=== PATIENT | female | born 1985 | race Caucasian/White ===

== ENCOUNTER → 2017-02-21 | Outpatient (CLI) | payer OTHER | LOC: FIMAGING 10:19 | PROVIDERS: ATTEND Obstetrics & Gynecology | DX: O09.812 Supervision of pregnancy resulting from assisted reproductive technology, second trimester (principal); Z3A.19 19 weeks gestation of pregnancy ==

== ENCOUNTER 2017-07-09 05:37 | Inpatient (IN) | payer OTHER ==
--- NOTE | 2017-07-03 14:15 | GHP ---
[f rep st] HISTORY AND PHYSICAL DATE OF ADMISSION: 07/09/2017 ADMITTING DIAGNOSES: 1. Intrauterine at 39 2/7 weeks. 2. Previous section, declines trial of labor. HISTORY OF PRESENT ILLNESS: Patient is a 32-year-old 2, para 1-0-0-1 at 39-2/7 weeks' with estimated due date 07/14/2017 by IVF and FET on 2016. The patient presents to Labor and Delivery with a history of a previous C -section, declines a trial of labor. Desires repeat at this time. Patient states good movement. Denies any leakage of fluid, vaginal bleeding, or contractions. The patient has good care at [facility], and presented in her first trimester at 9 weeks. is complicated by previous secondary to arrest of dilation. 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 The patient has a history of migraines but no issues during the . She had a subchorionic hemorrhage noted on first trimester u/s, but it resolved on 20 week ultrasound. Patient received both Tdap and flu vaccine. She did have a level 2 ultrasound with MFM showing normal brain anatomy, and all anatomy normal. She also had a echo that was negative secondary to IVF. This patient developed slight anemia late in the third trimester. GBS is positive. PAST OB HISTORY: In February 2014, she delivered a viable male infant at 40 weeks 3 days, weighing 8 pounds 15 ounces, by secondary to arrest of descent. 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 Positive GBS. GYNECOLOGIC HISTORY: Age of menarche 11, cycles are every 28 days for 4 days. The patient did IVF, the transfer was done October 26, 2016. Patient does have a history of abnormal Pap smear in 2012, ASCUS, negative HPV. Pap smear was normal during this . The patient has a history of NuvaRing use, OCPs, and IUD. Her IUD was removed in November 2015. Denies any exposure to STD's. CURRENT MEDICATIONS: Include vitamins, baby aspirin. ALLERGIES: No known drug allergies. PAST MEDICAL HISTORY: Migraine headaches. PAST SURGICAL HISTORY: 2013, hysteroscopy January 2016, wisdom teeth extraction 2001. FAMILY HISTORY: Father with chronic hypertension. Mother, diverticulitis and breast cancer, age 44. Maternal cousin, ovarian cancer, age 30. Maternal grandmother skin cancer, brain cancer. SOCIAL HISTORY: The patient is . Lives with her , Giacomo, who also has craniosynostosis. She is a [id number] mom. Denies any alcohol, tobacco, or illicit drug use. LABS: A positive. Antibody negative. RPR nonreactive. Rubella immune. Hepatitis B surface antigen negative. HIV negative. Trio screen all negative, 2012. TSH 1.4. Urine culture was positive and the test of cure negative. Pap smear negative 12/11/2016. Gonorrhea and chlamydia cultures were negative 2012. Declined in this . H and H 13.1 and 38.1. One- hour Glucola 93. GBS culture is positive. PHYSICAL EXAMINATION: On admission, vital signs are stable. Patient is a well- nourished, well-developed female, alert and oriented x3. No apparent distress. CARDIOVASCULAR: Regular rate and rhythm. LUNGS: Clear to auscultation bilaterally. ABDOMEN: Gravid, soft, nontender, nondistended. EXTREMITIES: Normal to inspection without calf tenderness or edema. PELVIC: Deferred. ASSESSMENT: The patient is a 32-year-old 2, para 1-0-0-1 at 39-2/7 weeks with a history of a previous section, declines a trial of labor. 1. Admit to Labor and Delivery for repeat section. 2. Surgical consents obtained in the office. Discussed the risks, benefits, alternatives, with the patient, including but not limited to, bleeding, infection, damage to surrounding organs. Patient understands all risks at this time and wants to proceed with surgery. 3. Discussed n.p.o. status. Postop recovery. 4. Antibiotics cone former to OR. 5. SCDs for DVT prophylaxis. /[id number]/MODL MTDD
[2017-07-09] MEDS ORDERED: ceFAZolin 2 GM/DEXTROSE 100 ML IV ONE (05:52)
[2017-07-09] MEDS ORDERED: CITRIC ACID/SODIUM CITRATE 30 ML UDCUP PO ONE (05:52)
[2017-07-09] MEDS ORDERED: LR 500 ML IV ONE (05:52)
[2017-07-09] MEDS ORDERED: LR 1,000 ML IV SCH (06:00)
[2017-07-09 06:20] LABS: % IMMATURE GRANULYOCYTES 0.8 % (0.0-1.1); ABSOLUTE IMMATURE GRANULOCYTES 0.08 10^3/uL (0.00-0.10); ADD DIFF? NO; ADD MORPH? NO; ADD SCAN? NO; ATYPICAL LYMPHOCYTE FLAG 0 (0-99); FRAGMENT RBC FLAG 0 (0-99); HEMATOCRIT 37.9 % (38.0-47.0); HEMOGLOBIN 13.4 g/dL (12.6-16.3); LEFT SHIFT FLG 0 (0-99); LIPEMIA HEMOLYSIS FLAG 90 (0-99); MEAN CELL HEMOGLOBIN 34.3 pg (27.9-34.1); MEAN CELL HEMOGLOBIN CONCENTR. 35.4 g/dL (32.4-36.7); MEAN CELL VOLUME 96.9 fL (81.5-99.8); MEAN PLATELET VOLUME 9.6 fL (8.7-11.7); PLATELET CLUMPS FLAG 20 (0-99); PLATELET COUNT 302 10^3/uL (150-400); RED BLOOD CELL COUNT 3.91 10^6/uL (4.18-5.33); RED CELL DISTRIBUTION WIDTH 12.5 % (11.5-15.2)
[2017-07-09] MEDS ORDERED: TERBUTALINE SULFATE 1 MG/ML VIAL ONE (06:51)
[2017-07-09] MEDS ORDERED: OLIVE OIL 118 ML BTL ONE (06:51)
[2017-07-09] MEDS ORDERED: AMMONIA AROMATIC 1 EACH AMP IH ONE (06:51)
[2017-07-09] MEDS ORDERED: LIDOCAINE 1% 300 MG/30 ML SDV ONE (06:51)
[2017-07-09] MEDS ORDERED: MISOPROSTOL 200 MCG TAB ONE (06:52)
[2017-07-09] MEDS ORDERED: OXYTOCIN 10 UNIT/ML VIAL ONE (06:52)
[2017-07-09] MEDS ORDERED: morphINE PF 5 MG/10 ML INJ ONE (07:31)
[2017-07-09] MEDS ORDERED: ONDANSETRON 4 MG/2 ML VIAL ONE (07:42)
[2017-07-09] MEDS ORDERED: METOCLOPRAMIDE 10 MG/2 ML VIAL ONE (07:42)
[2017-07-09] MEDS ORDERED: PHENYLEPHRINE HCL 100 MCG/ML SYR ONE (07:45)
[2017-07-09] MEDS ORDERED: HYDROmorphONE/DILAUDID 1 MG/ML INJ IVP PRN (07:59)
[2017-07-09] MEDS ORDERED: PHENYLEPHRINE HCL 100 MCG/ML SYR IVP PRN (07:59)
[2017-07-09] MEDS ORDERED: OXYCODONE/APAP 5/325 TAB PO PRN (07:59)
[2017-07-09] MEDS ORDERED: fentaNYL 100 MCG/2 ML INJ IVP PRN (07:59)
[2017-07-09] MEDS ORDERED: LACTULOSE 20 GM/30 ML UDCUP PO PRN (08:46)
[2017-07-09] MEDS ORDERED: PROMETHAZINE HCL 25 MG/ML INJ IVP PRN (08:46)
[2017-07-09] MEDS ORDERED: DOCUSATE SODIUM 100 MG CAP PO PRN (08:46)
[2017-07-09] MEDS ORDERED: POLYETHYLENE GLYCOL 3350 17 GM PKT PO PRN (08:46)
[2017-07-09] MEDS ORDERED: SIMETHICONE 80 MG TAB CHEW PO PRN (08:46)
[2017-07-09] MEDS ORDERED: MAGNESIUM HYDROXIDE 30 ML UDCUP PO PRN (08:46)
[2017-07-09] MEDS ORDERED: BISACODYL 10 MG SUPP PR PRN (08:46)
--- NOTE | 2017-07-09 08:50 | POSTANESTH ---
Post Anesthetic Evaluation Cardiovascular Status: Normal, Stable Respiratory Status: Normal, Stable Level of Consciousness/Mental Status: Can Participate in Eval, Alert and Oriented Pain Control: Adequate, Prn Tx Ordered Nausea/Vomiting Control: Adequate, Prn Tx Ordered Complications Possibly Related to Anesthesia: None Noted
--- NOTE | 2017-07-09 08:50 | PREANESOB ---
Obstetric Pre-Anesthesia Info - General Info Proposed Procedure: : 2 Para: 1 VI: 07/14/17 Gestational Age: 39 week(s) and 2 day(s) - Info Status: Full Term Monitors: External FHR Pattern: Reassuring - Labor Status Section History: Repeat Anesthesia Allergies/Adverse Reactions: Allergy/AdvReac Type Severity Reaction Status Date / Time No Known Allergies Allergy Unverified 02/19/14 03:55 Home Medications: Medication Instructions Recorded Vit27&Calcium/Iron/FA 1 tab PO DAILY 02/19/14 [] Visit Medications: Generic Name Dose Route Start Last Admin Trade Name Freq PRN Reason Stop Dose Admin Hydrocodone Bitart/Acetaminophen 1 - 2 tab 07/09/17 08:46 [place] 5/325 PO 07/19/17 08:45 Q4HRS PRN Pain, Moderate Bisacodyl 10 mg 07/09/17 08:46 Dulcolax Rectal DC 01/05/18 08:45 DAILY PRN Constipation Protocol Docusate Sodium 100 mg 07/09/17 08:46 Colace PO 01/05/18 08:45 BID PRN Constipation Ephedrine Sulfate 10 - 20 mg 07/09/17 07:59 Ephedrine Sulfate IV 07/09/17 09:00 Q5M PRN Hypotension Fentanyl 25 - 50 mcg 07/09/17 07:59 Sublimaze IVP 07/09/17 09:00 Q5M PRN Short acting pain control Hydromorphone HCl 0.2 - 0.4 mg 07/09/17 07:59 Dilaudid IVP 07/09/17 09:00 Q10M PRN Pain, Severe Unable to Take PO Lactated Ringer's 1,000 mls @ 125 mls/hr 07/09/17 06:00 07/09/17 06:58 Lr IV 07/10/17 05:59 1,000 mls CONT JOHAN Administration Ibuprofen 600 mg 07/09/17 08:46 Motrin PO 01/05/18 08:45 Q6HRS PRN Inflammation Ketorolac Tromethamine 30 mg 07/09/17 12:00 Toradol IVP 07/10/17 06:01 Q6HRS JOHAN Lactulose 20 gm 07/09/17 08:46 Cephulac PO 01/05/18 08:45 TID PRN Constipation Protocol Magnesium Hydroxide 30 ml 07/09/17 08:46 Milk Of Magnesia PO 01/05/18 08:45 DAILY PRN Constipation Protocol Oxycodone/Acetaminophen 1 - 2 tab 07/09/17 07:59 Percocet 5/325 PO 07/19/17 07:58 Q4HRS PRN Pain, Severe Able to Take PO Phenylephrine HCl 100 mcg 07/09/17 07:59 Neosynephrine IVP 07/09/17 09:00 Q1M PRN Hypotension Polyethylene Glycol 17 gm 07/09/17 08:46 Miralax PO 01/05/18 08:45 DAILY PRN Constipation, patient prefers Protocol Promethazine HCl 25 mg 07/09/17 08:46 Phenergan IVP 01/05/18 08:45 Q6HRS PRN Nausea/Vomiting, Use 1st Senna/Docusate Sodium 1 - 2 tab 07/09/17 09:00 Senokot-S PO 01/05/18 08:59 BID JOHAN Protocol Simethicone 80 mg 07/09/17 08:46 Mylicon PO 01/05/18 08:45 .TIDMEALS AND HS PRN Gas Discontinued Medications Generic Name Dose Route Start Last Admin Trade Name Freq PRN Reason Stop Dose Admin Ammonia (Aromatic Spirit) Confirm 07/09/17 06:51 Ammonia Aromatic Administered 07/09/17 06:52 Dose 1 each IH .STK-MED ONE Citric Acid/Sodium Citrate 30 ml 07/09/17 05:52 07/09/17 07:10 Bicitra PO 07/09/17 05:53 30 ml ONCALL ONE Administration Cefazolin Sodium/Dextrose 100 mls @ 200 mls/hr 07/09/17 05:52 07/09/17 06:56 Ancef 2 Gm (Premix) IV 07/09/17 06:21 100 mls ONCALL ONE Administration Protocol Lactated Ringer's 500 mls @ 0 mls/hr 07/09/17 05:52 Lr IV 07/09/17 05:53 ONCE ONE As Directed Lidocaine HCl Confirm 07/09/17 06:51 Lidocaine Hcl 1% Administered 07/09/17 06:52 Dose 300 mg .ROUTE .STK-MED ONE Metoclopramide HCl Confirm 07/09/17 07:42 Reglan Injection Administered 07/09/17 07:43 Dose 10 mg .ROUTE .STK-MED ONE Misoprostol Confirm 07/09/17 06:52 Cytotec Administered 07/09/17 06:53 Dose 1,000 mcg .ROUTE .STK-MED ONE Morphine Sulfate Confirm 07/09/17 07:31 Morphine Pf 5 Mg/10 Ml Administered 07/09/17 07:32 Dose 5 mg .ROUTE .STK-MED ONE [place] Oil Confirm 07/09/17 06:51 Sweet Oil Administered 07/09/17 06:52 Dose 118 ml .ROUTE .STK-MED ONE Ondansetron HCl Confirm 07/09/17 07:42 Zofran Administered 07/09/17 07:43 Dose 4 mg .ROUTE .STK-MED ONE Oxytocin Confirm 07/09/17 06:52 Pitocin Administered 07/09/17 06:53 Dose 30 unit .ROUTE .STK-MED ONE Phenylephrine HCl Confirm 07/09/17 07:45 Neosynephrine Administered 07/09/17 07:46 Dose 1,000 mcg .ROUTE .STK-MED ONE Terbutaline Sulfate Confirm 07/09/17 06:51 Brethine Administered 07/09/17 06:52 Dose 1 mg .ROUTE .STK-MED ONE - Vital Signs Latest Vital Signs (Nursing): Temp Pulse Resp BP Pulse Ox 36.7 C 75 18 89/74 L 98 07/09/17 08:46 07/09/17 06:25 07/09/17 06:33 07/09/17 08:46 07/09/17 08:46 Height/Weight (Nursing): Height 167.64 cm Weight 95.254 kg - Focused Exam Neck exam: FROM Mallampati Score: Class 2 Mouth exam: normal dental/mouth exam Pulmonary: clear to auscultation Cardiovascular: regular rate and rhythym Labs: 07/09/17 06:06 Patient ABO/Rh A POSITIVE 07/09/17 06:06 - Plan Consent Signed and on Chart: Yes Patient/Guardian Understands and Agrees to Plan: Yes
--- NOTE | 2017-07-09 08:52 | OBDEL ---
Info Type: Repeat Presentation at Delivery: Vertex L&D Analgesia/Anesthesia Type: Spinal GBS+: No Intrapartum Medications: Generic Name Dose Route Start Last Admin Trade Name Freq PRN Reason Stop Dose Admin Lactated Ringer's 1,000 mls @ 125 mls/hr 07/09/17 06:00 07/09/17 06:58 Lr IV 07/10/17 05:59 1,000 mls CONT JOHAN Administration Discontinued Medications Generic Name Dose Route Start Last Admin Trade Name Freq PRN Reason Stop Dose Admin Citric Acid/Sodium Citrate 30 ml 07/09/17 05:52 07/09/17 07:10 Bicitra PO 07/09/17 05:53 30 ml ONCALL ONE Administration Cefazolin Sodium/Dextrose 100 mls @ 200 mls/hr 07/09/17 05:52 07/09/17 06:56 Ancef 2 Gm (Premix) IV 07/09/17 06:21 100 mls ONCALL ONE Administration Protocol - Infant Care Provider Drying Machine Receiver/CATHODE WASHER: Magui Mullins Indications for Delivery: Elective (Prior LTCS) Operative Report - Delivery Pre-op Diagnoses: IUP @ 39 2/7 wks with prior LTCS; declined trial of labor Post-op Diagnoses: IUP @ 39 2/7 wks with prior LTCS; declined trial of labor History of Prior Section: Yes Number of Prior Sections: 1 Indications for Prior Section: Arrest of Dilation Indications for Current Section: Elective/Repeat Procedure: Scheduled Surgeon: Claudette Stover Cane Splicer: Nishi De Los Santos Anesthesiologist: Jeet Menchaca Complications: None Findings: A viable female infant with 8 and 9 Apgars in cephalic presentation; delayed cord clamping. Placenta delivered intact spontaneously with 3-vc. Cord blood obtained. Grossly normal appearing uterus, tubes and ovaries b/l. Specimen(s)/Path: Other (Specify) (none) IV Fluid (ml): 1,200 EBL: 400 cc UO: 150 cc clear urine Data Twin A Delivery Date: 07/09/17 Delivery Time: 08:01 VI: 07/14/17 Gestational Age: 39 week(s) and 2 day(s) Sex of Infant: Female (Lori) Score (1 Min): 8 Score (5 Min): 9 ICD10 Worksheet Patient Problems: Problems Problem Status Onset Status post repeat low transverse section Acute - ICD10 Problem Qualifiers (1) Status post repeat low transverse section
[2017-07-09] MEDS ORDERED: KETOROLAC 30 MG/1 ML SDV ONE (09:43)
[2017-07-09] MEDS: KETOROLAC 30 MG/1 ML SDV IVP SCH ×3 (09:48→22:02)
[2017-07-09] MEDS: SENNOSIDES/DOCUSATE SODIUM TAB PO SCH ×2 (17:25→22:02)
--- NOTE | 2017-07-09 20:16 | GOP ---
[f rep st] OPERATIVE REPORT DATE OF OPERATION: 07/09/2017 SURGEON: Claudette Stover DO KNIFE OPERATOR: Nishi De Los Santos CNM, MARGO Maxwell ANESTHESIA: Spinal. ANESTHESIOLOGIST: Dr. Menchaca PREOPERATIVE DIAGNOSIS: Intrauterine at 39-2/7 weeks gestation with history of a prior low transverse section. Declines trial of labor. Desires repeat . POSTOPERATIVE DIAGNOSIS: Intrauterine at 39-2/7 weeks gestation with A history of prior low transverse section, declines trial of labor. Desires repeat . PROCEDURE PERFORMED: Repeat low transverse section. FINDINGS: A viable female infant, in cephalic presentation with 8 and 9 's , born at 0801. Cord clamping was delayed x60 seconds. Cord blood was obtained. Placenta delivered spontaneously intact with 3-vessel cord. Grossly normal appearing uterus, tubes, and ovaries bilaterally. ESTIMATED BLOOD LOSS: 400 cc. INDICATIONS: Patient is a 32-year-old, 2, para 1-0-0-1 at 39-2/7 weeks via IVF. The patient has a history of a previous secondary to arrest of dilation. She declines trial of labor and desires repeat at this time. Surgical consents were obtained. We discussed risks, benefits, alternatives of the procedure including but not limited to, bleeding, infection , and damage to surrounding organs. The patient understands all risks at this time and wants to proceed with surgery. The patient was properly consented. DESCRIPTION OF PROCEDURE: Patient was taken to the operating room where she was given spinal anesthesia without difficulty. She was then prepped and draped in the usual sterile manner and placed in supine position with leftward tilt. Medina catheter was placed in her bladder. After adequate anesthesia was assured, a Pfannenstiel skin incision was made at the previous scar. The incision was carried down to the underlying fascia with the Bovie. Fascia was then incised in the midline. Fascial incision was extended laterally with Hayes scissors. Superior aspect of fascial incision was grasped with Naseem clamps, elevated, and rectus muscles dissected off sharply. Inferior aspect of fascial incision was then grasped with Naseem clamps, elevated, and rectus muscles dissected off sharply. Rectus muscles were then in the midline. Peritoneum was then visualized and entered bluntly and extended superiorly and inferiorly with good visualization of bladder. Bladder blade was then inserted. The vesicouterine peritoneum was then grasped with pickups and entered sharply with Metzenbaum scissors. Incision was carried laterally and the bladder flap was created digitally. Bladder blade was then reinserted. A low-transverse uterine incision was then made with a knife. Incision was extended anteriorly and posteriorly digitally. There was clear amniotic fluid noted upon entry to the amniotic sac. Baby girl was then delivered in cephalic presentation without difficulty. Mouth and nose were bulb suctioned. We delayed cord clamping for 1 minute. The cord was then clamped x2 and cut. handed off to awaiting nurse practitioner. Cord blood was obtained and sent. Placenta was then removed spontaneously intact with 3- vessel cord. The uterus was then exteriorized and cleared of all clots and debris. Uterine incision was then repaired with 0 Vicryl in a running, locked fashion. Hemostasis was noted. A 2nd imbricating layer of suture was then performed with 0 Vicryl. Hemostasis was noted. The uterus then returned to the abdomen. The gutters were cleared of all clots and debris. Reinspection of the uterine incision revealed some oozing so a figure-eight stitch of 0 Vicryl was placed as well as surgical Tanya and hemostasis was achieved. The rectus muscles were then reapproximated with 2-0 Vicryl, in an inverted mattress fashion. The fascia was then closed with 0 Vicryl in a running fashion. Hemostasis was noted. Skin was then closed with 4-0 Vicryl on a Tarik needle. Steri-Strips were placed as well as a bandage. The patient tolerated the procedure well. No complications. Sponge, lap, needle, and instrument counts were correct x2. The patient was then taken to recovery room in stable condition. IV FLUIDS: 1200 cc LR. URINE OUTPUT: 150 cc of clear urine at the end the procedure. /[id number]/MODL MTDD
[2017-07-10] MEDS: KETOROLAC 30 MG/1 ML SDV IVP SCH (04:22)
[2017-07-10 06:22] LABS: HEMATOCRIT 33.2 % (38.0-47.0); HEMOGLOBIN 11.7 g/dL (12.6-16.3)
--- NOTE | 2017-07-10 07:59 | POSTANESTH ---
Post Anesthetic Evaluation Cardiovascular Status: Normal, Stable Respiratory Status: Normal, Stable Level of Consciousness/Mental Status: Can Participate in Eval, Alert and Oriented Pain Control: Adequate, Prn Tx Ordered Nausea/Vomiting Control: Adequate, Prn Tx Ordered (DURAMORPH Follow-Up: Pain well controlled. Pt amublating with no complaints.)
[2017-07-10] MEDS: SENNOSIDES/DOCUSATE SODIUM TAB PO SCH ×2 (08:56→22:14)
[2017-07-10] MEDS: HYDROCODONE/APAP 5/325 TAB PO PRN ×4 (08:56→22:15)
[2017-07-10] MEDS: IBUPROFEN 600 MG TAB PO PRN ×3 (10:20→22:14)
[2017-07-10] MEDS: IRON POLYSAC/IRON HEME 28 MG TAB PO SCH (14:18)
--- NOTE | 2017-07-10 16:28 | OBPP ---
Progress Note Assessment/Plan: Assessment: POD1 s/p RCS mild anemia Plan: routine Care, iron daily 07/10/17 16:24 Subjective/ Course: 07/10/17 16:25 Pt doing well. Bld has definitely lessened. urinating well. Has taken shower and amb fine. Working on BF and slightly tender nipples. sarah reg diet. Pain controlled with [place]/ibu Objective: 07/10/17 06:10 Patient ABO/Rh A POSITIVE 07/09/17 06:06 Temp Pulse Resp BP Pulse Ox 36.5 C 80 16 130/78 H 95 07/10/17 08:45 07/10/17 08:45 07/10/17 08:45 07/10/17 08:45 07/10/17 08:45 Uterine Position/Fundal Height: Umbilicus -1 Uterine Tone: Firm Physical Exam - Physical Exam Abdomen: non-tender (approp post op tenderness), soft, other (FF at umb -1) Extremities: non-tender, pedal edema (mild) Skin: normal color, warm/dry Neuro/Psych: alert, normal mood/affect
[2017-07-10 17:09] VITALS: RESP 18
[2017-07-10 19:42] VITALS: O2SAT 98
[2017-07-11] MEDS: IBUPROFEN 600 MG TAB PO PRN ×2 (05:48→12:22)
[2017-07-11] MEDS: IRON POLYSAC/IRON HEME 28 MG TAB PO SCH (09:18)
[2017-07-11] MEDS: SENNOSIDES/DOCUSATE SODIUM TAB PO SCH (09:18)
[2017-07-11 11:03] VITALS: BP 108/74; PULSE 73; TEMP 97.2
--- NOTE | 2017-07-11 14:29 | OBGCSDC ---
General Delivery Information - General Info : 2 Para: 2 Abortions: 0 Type: Repeat L&D Analgesia/Anesthesia Type: Spinal Admission Date: 07/09/17 Labs: Patient ABO/Rh A POSITIVE 07/09/17 06:06 Hct 33.2 % (38.0-47.0) L 07/10/17 06:10 - Hospital Course : 07/10/17 16:25 Pt doing well. Bld has definitely lessened. urinating well. Has taken shower and amb fine. Working on BF and slightly tender nipples. sarah reg diet. Pain controlled with [place]/ibu 07/11/17 14:26 S) Pt doing well, reports min pain and bleeding. she is ambulating and voiding without difficulty. She is . She desires discharge home today. O) VSS, afebrile constitutional: WNWF, A&Ox3 HEENT: normocephalic, atraumatic, supple Heart: RRR, No murmur Chest: CTA-B Abdomen: Soft, nontender Uterus: Firm at U-2 incision: C/D/I, steristrips applied Lochia: Minimal rubra Perineum: Intact, healing well Extremities: Trace edema, and negative Wilbert's sign Neuro: Grossly normal A) 32-year-old S/P repeat c/s POD#2 P) Discharge home today routine post op care Continue Pelvic rest x6wks Discussed danger signs (infection, preeclampsia, depression, heavy bleeding, etc ) RTO in 2/4/6 weeks - Delivery Providers Surgeon: Claudette Stover Prop Maker: Nishi De Los Santos Anesthesiologist: Jeet Menchaca - Delivery Number of Prior Sections: 1 Indications for Current Section: Elective/Repeat Surgical Procedures: Scheduled Intra-op Complications: None EBL: 400 cc UO: 150 cc clear urine [place] Data VI: 07/14/17 Gestational Age: 39 week(s) and 4 day(s) Twin A Delivery Date: 07/09/17 Delivery Time: 08:01 Sex of Infant: Female (Lori) Score (1 Min): 8 Score (5 Min): 9 Telles Delivery Date: 07/09/17 Delivery Time: 08:01 Sex of : Female Score (1 Min): 9 Score (5 Min): 10 Discharge Information - Discharge Information Condition: Good Instruction/Follow Up: Two Weeks, Four Weeks, Six Weeks
== END 2017-07-11 13:30 | disposition home or self-care (01) | DRG 766 ==
LOC: FLD 05:37 → FOB 10:45
PROVIDERS: ADMIT Obstetrics & Gynecology; ATTEND Obstetrics & Gynecology
PROC: 10D00Z1 Extraction of Products of Conception, Low, Open Approach (ICD-10-PCS; principal; 2017-07-09)
DX: O34.219 Maternal care for unspecified type scar from previous cesarean delivery (principal); Z37.0 Single live birth; Z3A.39 39 weeks gestation of pregnancy; O99.824 Streptococcus B carrier state complicating childbirth
CPT/HCPCS: J0690; J1885; J2274; J2370; J2405; J2765; J3105